=== PATIENT | female | born 1940 | race Caucasian/White ===

== ENCOUNTER 2017-02-03 13:29 | Emergency (ER) | payer MEDICARE ==
[~2017-02-03] VITALS: Ht 162.6 cm; Wt 101.0 kg
[~2017-02-03 13:29] MED LIST: CHOL20004 PO; LOSARTAN PO
[2017-02-03] MEDS ORDERED: METO-296 PO (14:04)
[2017-02-03] MEDS ORDERED: LIDOCAINE HCL 1% 20ML VIAL (Pyxis) INJ INFIL ONE (18:30)
[2017-02-03] MEDS ORDERED: BACITRACIN ZINC OINT UDPKT TOP ONE (18:30)
[2017-02-03 19:10] LABS: BASOPHILS % 0.2 % (0.0-2.0); EOSINOPHILS % 1.6 % (0.0-5.0); HEMATOCRIT. 35.4 % (36.0-48.0); HEMOGLOBIN. 11.7 g/dL (12.0-16.0); MEAN CORPUSCULAR VOLUME 96.8 fL (81.0-99.0); MONOCYTES % 6.7 % (2.0-8.0); NEUTROPHILS % 61.5 % (40.0-76.0); PLATELET 147 x1000/uL (130-400); RED BLOOD CELL COUNT 3.65 mill/uL (4.2-5.4); RED CELL DISTRIBUTION WIDTH 14.9 % (11.6-14.6)
[2017-02-03 19:14] LABS: INR 1.1; PROTHROMBIN TIME 11.1 sec
[2017-02-03 19:21] LABS: CARBON DIOXIDE 31 mEq/L (21-32); CHLORIDE 105 mEq/L (98-107)
[2017-02-03 20:22] LABS: CLARITY URINE CLEAR (CLEAR); COLOR URINE YELLOW (YELLOW); GLUCOSE URINE NEGATIVE (NEGATIVE); KETONES URINE NEGATIVE (NEGATIVE); LEUKOCYTE ESTERASE URINE NEGATIVE (NEGATIVE); NITRITE URINE NEGATIVE (NEGATIVE); OCCULT BLOOD URINE TRACE (NEGATIVE); PH URINE 6.5 (4.5-8.0); PROTEIN URINE NEGATIVE (NEGATIVE); SPECIFIC GRAVITY URINE 1.013 (1.005-1.030); UROBILINOGEN URINE 0.2 E.U./dL (0.2-1.0)
[2017-02-03] MEDS ORDERED: ACETAMINOPHEN 650MG/20.3ML UDC PO ONE (22:15)
[2017-02-04 00:10] VITALS: BP 154/70
== END 2017-02-04 01:06 | disposition home or self-care (01) ==
LOC: ER 18:25
PROC: 0HQMXZZ Repair Right Foot Skin, External Approach (ICD-10-PCS; principal; 2017-02-03)
DX: S91.111A Laceration without foreign body of right great toe without damage to nail, initial encounter (principal); W18.39XA Other fall on same level, initial encounter; Y93.F1 Activity, caregiving, bathing; Y92.091 Bathroom in other non-institutional residence as the place of occurrence of the external cause; M19.90 Unspecified osteoarthritis, unspecified site; I10 Essential (primary) hypertension; Z88.0 Allergy status to penicillin; Z88.1 Allergy status to other antibiotic agents; Z88.2 Allergy status to sulfonamides; Z88.3 Allergy status to other anti-infective agents; Z88.6 Allergy status to analgesic agent; Z96.659 Presence of unspecified artificial knee joint
CPT/HCPCS: 12002; 36415; 71010; 73660; 80053; 81001; 83880; 85025; 85610; 93005; 99285; J3490

== ENCOUNTER 2020-09-24 17:46 | Emergency (ER) | payer MEDICARE, OTHER ==
[~2020-09-24] VITALS: Ht 162.6 cm; Wt 98.0 kg
[~2020-09-24 17:46] MED LIST changes: +METO-396 PO
[2020-09-24 22:13] VITALS: BP 172/69
== END 2020-09-24 22:14 | disposition home or self-care (01) ==
LOC: ER 17:46
DX: T40.2X1A Poisoning by other opioids, accidental (unintentional), initial encounter (principal); Y92.89 Other specified places as the place of occurrence of the external cause; J45.909 Unspecified asthma, uncomplicated; Z98.890 Other specified postprocedural states; Z88.2 Allergy status to sulfonamides; Z88.0 Allergy status to penicillin
CPT/HCPCS: 93005; 99285